=== PATIENT | male | born 1960 | race Caucasian/White ===

== ENCOUNTER 2016-10-07 08:38 | Emergency (ER) | payer BC ==
[~2016-10-07] VITALS: Ht 180.3 cm; Wt 103.9 kg
[2016-10-07 08:41] VITALS: BP 195/108
[2016-10-07] MEDS ORDERED: DIPH,PERTUSS(ACELL),TET VAC/PF 0.5 ML IM-VACC ONE ×2 (09:10→09:30)
[2016-10-07] MEDS ORDERED: BACITRACIN ZINC OINT 500U/GM, 0.9 GM ONE (09:52)
== END 2016-10-07 10:16 | disposition home or self-care (01) ==
LOC: ED 09:49
DX: S70.01XA Contusion of right hip, initial encounter (principal); M25.462 Effusion, left knee; S00.81XA Abrasion of other part of head, initial encounter; F10.180 Alcohol abuse with alcohol-induced anxiety disorder; W19.XXXA Unspecified fall, initial encounter; Y93.89 Activity, other specified; Y92.410 Unspecified street and highway as the place of occurrence of the external cause; Y99.8 Other external cause status
CPT/HCPCS: 90471; 90715